=== PATIENT | male | born 1960 | race Caucasian/White ===

== ENCOUNTER 2021-04-11 03:24 | Inpatient (IN) | payer SELFPAY ==
[2021-04-11] VITALS (34 sets, daily range): BP systolic 91–155; BP diastolic 40–98
[~2021-04-11] VITALS: Ht 175.3 cm; Wt 134.7 kg
[2021-04-11 04:05] LABS: BASOPHILS % 0.7 % (0.0-2.0); EOSINOPHILS % 3.7 % (0.0-5.0); HEMATOCRIT. 40.9 % (42.0-52.0); LYMPHOCYTES % 34.9 % (20.0-50.0); MEAN CORPUSCULAR HEMOGLOBIN 30.3 pg (28.0-32.0); MEAN CORPUSCULAR VOLUME 88.3 fL (80.0-94.0); MEAN PLATELET VOLUME 7.8 fl (7.4-10.4); MONOCYTES % 9.6 % (2.0-8.0); NEUTROPHILS % 51.1 % (40.0-76.0); PLATELET 263 x1000/uL (130-400); RED BLOOD CELL COUNT 4.63 mill/uL (4.7-6.1); RED CELL DISTRIBUTION WIDTH 13.5 % (11.6-14.6)
[2021-04-11 04:14] LABS: CHLORIDE 108 mEq/L (98-107)
[2021-04-11] MEDS ORDERED: LABETALOL HCL VIAL 20 MG/4 ML VIAL IV ONE (04:15)
[2021-04-11] MEDS ORDERED: NICARDIPINE 100 MG in SODIUM CHLORIDE 0.9% 60 ML IV ONE (04:15)
[2021-04-11] MEDS ORDERED: DEXAMETHASONE 10 MG/ML VIAL IV ONE (04:15)
[2021-04-11] MEDS ORDERED: LABETALOL 5MG/ML SYR 20 MG/4 ML SYRINGE IV NR (04:15)
[2021-04-11] MEDS ORDERED: NICARDIPINE 40 MG/200 ML PREMIX 200 ML IV PRN (04:15)
[2021-04-11 04:19] LABS: ETHANOL BLOOD < 10 mg/dL
[2021-04-11 04:30] LABS: CLARITY URINE CLEAR (CLEAR); COLOR URINE YELLOW (YELLOW); KETONES URINE NEGATIVE (NEGATIVE); LEUKOCYTE ESTERASE URINE NEGATIVE (NEGATIVE); NITRITE URINE NEGATIVE (NEGATIVE); OCCULT BLOOD URINE NEGATIVE (NEGATIVE); PH URINE 6.5 (4.5-8.0); PROTEIN URINE NEGATIVE (NEGATIVE); SPECIFIC GRAVITY URINE 1.017 (1.005-1.030); UROBILINOGEN URINE 0.2 E.U./dL (0.2-1.0)
[2021-04-11] MEDS ORDERED: IOHEXOL-350 100 ML BOTTLE ONE (04:36)
[2021-04-11] MEDS ORDERED: CLONIDINE 0.1MG TABLET PO PRN (07:00)
[2021-04-11] MEDS ORDERED: ONDANSETRON HCL 4MG/2ML INJ IV PRN (07:00)
[2021-04-11] MEDS ORDERED: HYDROMORPHONE HCL/PF 2MG/ML CPJ IV PRN (07:00)
[2021-04-11] MEDS ORDERED: ACETAMINOPHEN 325MG TABLET PO PRN (07:00)
[2021-04-11] MEDS ORDERED: HYDROCODONE/ACETAMINOPHEN 5/325MG TABLET PO PRN (07:00)
[2021-04-11] MEDS ORDERED: NALOXONE HCL 0.4MG/ML VIAL IV PRN (07:15)
[2021-04-11 09:06] LABS: *AMPHETAMINES SCREEN URINE NEGATIVE (NEGATIVE); *BENZODIAZEPINES SCREEN URINE NEGATIVE (NEGATIVE); *COCAINE SCREEN URINE NEGATIVE (NEGATIVE); CANNABINOID URINE SCREEN NEGATIVE (NEGATIVE); METHADONE URINE SCREEN NEGATIVE (NEGATIVE); OPIATES URINE SCREEN NEGATIVE (NEGATIVE); PHENCYCLIDINE URINE SCREEN NEGATIVE (NEGATIVE)
[2021-04-11 09:10] LABS: *BARBITURATES SCREEN URINE NEGATIVE (NEGATIVE)
[2021-04-11] MEDS ORDERED: NICARDIPINE 100 MG in SODIUM CHLORIDE 0.9% 60 ML IV PRN (10:45)
[2021-04-11] MEDS ORDERED: MORPHINE SULFATE 2 MG/ML CPJ (NOT FOR IM USE) IV PRN (10:45)
[2021-04-11 11:14] LABS: PROTHROMBIN TIME 10.8 sec (9.6-11.0)
[2021-04-11] MEDS ORDERED: LEVETIRACETAM 500 MG in SODIUM CHLORIDE 0.9% 100 ML IV SCH (12:00)
[2021-04-11] MEDS ORDERED: IPRATROPIUM/ALBUTEROL 0.5-3(2.5)MG/3ML NEB HHN PRN (14:15)
[2021-04-11] MEDS ORDERED: LOSA100T32 MT (15:08)
[2021-04-11] MEDS: LEVETIRACETAM 500MG PREMIX 100 ML IV SCH (21:00)
[2021-04-12] VITALS (57 sets, daily range): BP systolic 91–147; BP diastolic 28–95
[2021-04-12 05:22] LABS: BASOPHILS % 0.1 % (0.0-2.0); HEMATOCRIT. 39.8 % (42.0-52.0); HEMOGLOBIN. 13.8 g/dL (14.0-18.0); MEAN CORPUSCULAR HEMOGLOBIN 30.5 pg (28.0-32.0); MEAN CORPUSCULAR VOLUME 88.1 fL (80.0-94.0); MEAN PLATELET VOLUME 7.8 fl (7.4-10.4); MONOCYTES % 4.5 % (2.0-8.0); NEUTROPHILS % 85.4 % (40.0-76.0); PLATELET 294 x1000/uL (130-400); RED BLOOD CELL COUNT 4.52 mill/uL (4.7-6.1); RED CELL DISTRIBUTION WIDTH 13.4 % (11.6-14.6)
[2021-04-12 05:23] LABS: CHLORIDE 108 mEq/L (98-107)
[2021-04-12 05:31] LABS: HDL CHOLESTEROL 37 mg/dL (40-59)
[2021-04-12 05:32] LABS: LDL CHOLESTEROL 156 mg/dL (5-100)
[2021-04-12] MEDS: LEVETIRACETAM 500MG PREMIX 100 ML IV SCH ×2 (10:24→21:47)
[2021-04-12] MEDS: LOSARTAN POTASSIUM 50 MG TABLET PO SCH (11:30)
[2021-04-13] VITALS (23 sets, daily range): BP systolic 121–152; BP diastolic 67–98
[2021-04-13] MEDS: LOSARTAN POTASSIUM 50 MG TABLET PO SCH (09:35)
[2021-04-13] MEDS: LEVETIRACETAM 500MG PREMIX 100 ML IV SCH (09:35)
[2021-04-13] MEDS ORDERED: HYDROCHLOROTHIAZIDE 25MG TABLET PO SCH (10:00)
[2021-04-13] MEDS ORDERED: ATORVASTATIN CALCIUM 40MG TABLET PO SCH (21:00)
== END 2021-04-13 14:48 | disposition home or self-care (01) | DRG 44 ==
LOC: ER 03:24 → MICUSO 04:44 → EDBEDREQSVC 04:51 → EDBEDREQTM 04:51 → EDBEDREQ 04:51 → MICUNO 14:27 → 6EST 04-13 11:12
PROVIDERS: ADMIT Hospitalist; ATTEND Hospitalist
DX: I61.0 Nontraumatic intracerebral hemorrhage in hemisphere, subcortical (principal); I67.1 Cerebral aneurysm, nonruptured; G81.94 Hemiplegia, unspecified affecting left nondominant side; R47.01 Aphasia; I10 Essential (primary) hypertension; I16.0 Hypertensive urgency; E11.9 Type 2 diabetes mellitus without complications; E66.9 Obesity, unspecified; Z20.822 Contact with and (suspected) exposure to COVID-19; Z79.899 Other long term (current) drug therapy; Z82.49 Family history of ischemic heart disease and other diseases of the circulatory system; Z68.41 Body mass index [BMI] 40.0-44.9, adult
CPT/HCPCS: 36415; 70496; 70498; 71045; 80053; 80061; 80305; 80320; 81003; 82962; 84484; 85025; 87426; 93005; 97162; 97166; 99291; J1100; J1953; J3490; J7050; Q9967; G0480